=== PATIENT | female | born 1970 | race African-American/Black ===

== ENCOUNTER 2022-06-29 08:57 | Outpatient (CLI) | payer OTHER, MEDICAID | END 2022-06-29 08:58 | disposition home or self-care (01) | LOC: CSHWCC 08:57 | PROVIDERS: ATTEND Nurse Practitioner Family | DX: I87.311 Chronic venous hypertension (idiopathic) with ulcer of right lower extremity (principal); L97.412 Non-pressure chronic ulcer of right heel and midfoot with fat layer exposed; R60.0 Localized edema | CPT/HCPCS: 99204; G0463 ==